=== PATIENT | male | born 1940 | race Caucasian/White ===

== ENCOUNTER 2019-03-30 03:42 | Emergency (ER) | payer OTHER ==
[~2019-03-30] VITALS: Ht 165.1 cm; Wt 63.5 kg
[2019-03-30 03:49] VITALS: BP 189/96
--- NOTE | 2019-03-30 03:49 | NUR ---
BIBA TAKEN TO BED #2
--- NOTE | 2019-03-30 03:50 | NUR ---
PT ASSESSMENT COMPLETE. PT SEATED IN UPRIGHT POSITION. BEDRAIL X1 UP. WILL CONTINUE TO MONITOR.
[2019-03-30] MEDS ORDERED: NACL 0.9% 500 ML IV ONE (04:16)
--- NOTE | 2019-03-30 04:30 | NUR ---
BLOOD COLLECTED AND TAKEN TO LAB.
[2019-03-30 04:44] LABS: BASOPHILS % (AUTO) 0.3 % (0.0-2.0); EOSINOPHILS % (AUTO) 0.1 % (0.0-4.0); HEMATOCRIT 38.1 % (36-52); HEMOGLOBIN 12.3 g/dL (12.0-18.0); LYMPHOCYTES # (AUTO) 0.6 K/uL (2.0-11.5); LYMPHOCYTES % (AUTO) 10.1 % (20.5-51.1); MEAN CORPUSCULAR HEMOGLOBIN 29 pg (27-31); MEAN CORPUSCULAR HGB CONC 32 g/dL (33-37); MONOCYTES # (AUTO) 0.3 K/uL (0.8-1.0); MONOCYTES % (AUTO) 4.4 % (1.7-9.3); NEUTROPHILS # (AUTO) 5.4 K/uL (1.8-7.7); NEUTROPHILS % (AUTO) 85.1 % (42.2-75.2); PLATELET COUNT (AUTO) 173 K/uL (140-450); RED BLOOD CELL COUNT(AUTO) 4.23 MIL/uL (4.20-6.10); RED CELL DISTRIBUTION WIDTH 13.7 % (11.6-13.7); WHITE BLOOD COUNT (AUTO) 6.3 K/uL (4.8-10.8)
--- NOTE | 2019-03-30 04:46 | NUR ---
PT C/O INCREASED PAIN TO RT FLANK, 8/[address] ALMONTE MADE AWARE.
[2019-03-30] MEDS ORDERED: MORPHINE SULFATE 2 MG/ML SYR IVP ONE (04:55)
[2019-03-30 04:58] LABS: ALBUMIN 3.5 g/dL (3.4-5.0); ANION GAP 14.2 (8-16); ASPARTATE AMINOTRANSFERASE 55 U/L (15-37); CARBON DIOXIDE 26.4 mmol/L (21-32); CHLORIDE 102 mmol/L (98-107); CREATININE 1.1 mg/dL (0.7-1.3); GLUCOSE 110 mg/dL (74-106); SODIUM SERUM 137 mmol/L (136-145); TOTAL BILIRUBIN 0.6 mg/dL (0.0-1.0); UREA NITROGEN, BLOOD 24 mg/dL (7-18)
--- NOTE | 2019-03-30 04:59 | NUR ---
PT TAKEN TO CT VIA WHEELCHAIR
[2019-03-30 05:03] LABS: POTASSIUM 5.6 mmol/L (3.5-5.1)
--- NOTE | 2019-03-30 05:06 | NUR ---
S/E MAGALIS, LAB WHO STATED BLOOD SPECIMEN WAS HEMOLYZED. DR. ALMONTE MADE AWARE. WILL REDRAW.
--- NOTE | 2019-03-30 05:17 | NUR ---
PT RETURNED FROM CT VIA WHEELCHAIR
--- NOTE | 2019-03-30 05:30 | NUR ---
LABS REDRAWN AND TAKEN TO LAB
--- NOTE | 2019-03-30 05:35 | NUR ---
PT HYPERTENSIVE WITH BP 198/88, ASYMPTOMATIC. DR. ALMONTE MADE AWARE.
[2019-03-30] MEDS ORDERED: cloNIDine 0.1 MG TAB PO ONE (05:40)
[2019-03-30 05:47] LABS: ANION GAP 12.4 (8-16); CARBON DIOXIDE 28.2 mmol/L (21-32); CHLORIDE 103 mmol/L (98-107); CREATININE 1.2 mg/dL (0.7-1.3); GLUCOSE 111 mg/dL (74-106); POTASSIUM 4.6 mmol/L (3.5-5.1); SODIUM SERUM 139 mmol/L (136-145); UREA NITROGEN, BLOOD 24 mg/dL (7-18)
--- NOTE | 2019-03-30 06:16 | NUR ---
PT REPORTS DECREASED PAIN LEVEL, 6/10 PAIN.
[2019-03-30] MEDS ORDERED: MORPHINE SULFATE 4 MG/ML SYR IVP ONE (06:30)
--- NOTE | 2019-03-30 06:48 | NUR ---
S/W MALDONADO, SON WHO STATED HE WOULD BE UNABLE TO ADJUSTER PT.
--- NOTE | 2019-03-30 06:56 | NUR ---
CALLED NUMBER FOR [facility], DAUGHTER AND NUMBER WAS A NON-WORKING NUMBER.
--- NOTE | 2019-03-30 07:03 | NUR ---
PT BP DECREASED, 160/79 WITH HR 63. WILL CONTINUE TO MONITOR.
--- NOTE | 2019-03-30 07:23 | NUR ---
BEDSIDE REPORT GIVEN TO CARL KIM. TRANSFER OF CARE AT THIS TIME.
[2019-03-30 08:20] VITALS: BP 156/76
--- NOTE | 2019-03-30 08:20 | NUR ---
pt ride for home come in charge nurse rn informed and aware.
--- NOTE | 2019-03-30 08:22 | NUR ---
Patient discharged with v/s stable. Written and verbal after care instructions given and explained regarding bone pain for metastasis. Patient alert, oriented and verbalized understanding of instructions. Ambulatory with steady gait. All questions addressed prior to discharge. ID band removed. Patient advised to follow up with PMD. Rx of morphine given. Patient educated on indication of medication including possible reaction and side effects. Opportunity to ask questions provided and answered.
== END 2019-03-30 08:22 | disposition home or self-care (01) ==
LOC: MED 03:42
DX: L98.8 Other specified disorders of the skin and subcutaneous tissue (principal); R03.0 Elevated blood-pressure reading, without diagnosis of hypertension; M54.5 Low back pain; Z91.040 Latex allergy status; Z85.46 Personal history of malignant neoplasm of prostate
CPT/HCPCS: 36415; 72131; 80048; 80053; 85025; 96374; 96376; 99284; J2270; J7030